=== PATIENT | male | born 1955 | race Caucasian/White ===

== ENCOUNTER → 2017-10-09 | Outpatient (CLI) | payer BC ==
--- NOTE | 2017-10-09 21:40 | CT ---
EXAMINATION TYPE: CT angio chest DATE OF EXAM: 10/09/2017 9:20 PM COMPARISON: 07/04/2016 HISTORY: Follow up for thoracic aortic aneurysm. CT DLP: 904 mGycm Automated exposure control for dose reduction was used. CONTRAST: CTA scan of the thorax is performed with IV Contrast, patient injected with 100ml mL of Isovue 370, p ulmonary embolism protocol. There are 3-D post processed images.. FINDINGS: There is a minimal aneurysm of the ascending aorta that measures 3.9 cm. There is no evidence of diss ection. There is normal contrast opacification of the pulmonary arteries. I see no filling defect. Th ere are a few mediastinal and bronchial lymph nodes that measure up to 1 cm. There is no pericardial effusion. The lungs are clear of consolidation. There is a small 5 mm calcified granuloma in the right upper lo be. There is no evidence of pulmonate mass. There is no pleural effusion. IMPRESSION: HEALED GRANULOMATOUS DISEASE. NONSPECIFIC MEDIASTINAL AND ARCUAL LYMPH NODES ARE SMALL. STABLE MILD A NEURYSM OF ASCENDING AORTA COMPARED TO OLD EXAM. NO EVIDENCE OF PULMONARY EMBOLISM.
== END | disposition home or self-care (01) ==
LOC: RADCTMAIN 16:50
PROVIDERS: ATTEND Internal Medicine Interventional Cardiology
DX: I71.2 Thoracic aortic aneurysm, without rupture (principal)
CPT/HCPCS: 71275; Q9967